=== PATIENT | female | born 1935 | race Caucasian/White ===

== ENCOUNTER 2017-02-08 05:37 | Emergency (ER) | payer OTHER, BC ==
[~2017-02-08] VITALS: Ht 162.6 cm; Wt 62.8 kg
[~2017-02-08 05:37] MED LIST: Ascorbic Acid,Ester- PO; CENTRUM SILVER1 EAC3 PO; CYANOCOBALAM1000 MCG PO; Caltrate 600/400 PO; Centrum Silver,Certa PO; DIGOXIN125 MCG PO; DOCUSATE SODIU100 MG PO; ENDOCET 5-3251 EACH PO; ERGOCALCIF50000 UNIT PO; ESTER-C 1,0001 EACH PO; FISH OIL 1,0001 EAC7 PO; LOPRESSOR25 MG PO; MEDROL DOSEPAK4 MG PO; MOTRIN600 MG PO; Miralax, Glycolax PO; Omega III EPA + DHA PO; PAIN PILL PO; SIMVASTATIN20 MG PO; STOOL SOFTENER100 MG PO; ULTRAM50 MG PO; VITAMIN A8000 UNIT PO; VITAMIN D31000 UNIT PO; VITAMIN E400 UNIT PO; Vicodin,Norco 5/325 PO; Vitamin D, Drisdol PO; Vitamin-E PO
[2017-02-08] MEDS ORDERED: ATARAX,VISTARIL25 MG PO (07:12)
[2017-02-08] MEDS ORDERED: HYDROCORTISON28.4 G5 TP (07:12)
[2017-02-08 07:34] VITALS: BP 133/55
== END 2017-02-08 07:37 | disposition home or self-care (01) ==
LOC: EME 05:37
DX: S10.96XA Insect bite of unspecified part of neck, initial encounter (principal); S30.861A Insect bite (nonvenomous) of abdominal wall, initial encounter; W57.XXXA Bitten or stung by nonvenomous insect and other nonvenomous arthropods, initial encounter; Z85.118 Personal history of other malignant neoplasm of bronchus and lung; Z90.2 Acquired absence of lung [part of]; R21 Rash and other nonspecific skin eruption; L53.9 Erythematous condition, unspecified; Z87.891 Personal history of nicotine dependence
CPT/HCPCS: 99281; 99283